=== PATIENT | female | born 1995 | race African-American/Black ===

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

== ENCOUNTER 2017-01-25 11:46 | Emergency (ER) | payer OTHER ==
[~2017-01-25] VITALS: Ht 167.6 cm; Wt 62.0 kg
[~2017-01-25 11:46] MED LIST: NITR100C4 PO
[2017-01-25 11:47] VITALS: BP 122/70; PULSE 67; RESP 14; TEMP 98; O2SAT 98
--- NOTE | 2017-01-25 11:50 | PD ---
Physical Exam Date Seen by Provider: Jan 25, 2017 Time Seen by Provider: 11:49 Narrative 21 year old female presents to the emergency department for evaluation of possible STD. She reports abnormal vaginal discharge for approximately 3 days. VSS. Patient awaiting bed placement. Data Data Last Documented VS Vital Signs Date Time Temp Pulse Resp B/P Pulse Ox O2 Delivery O2 Flow Rate FiO2 01/25/17 11:47 98.0 67 14 122/70 98 MDM Supervised Visit with ONIEL: Christina Bolivar Jan 25, 2017 11:50
--- NOTE | 2017-01-25 12:14 | PD ---
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 Patient has had 3 days of increased vaginal discharge more yellow than normal. No malodorous. No pain. He has had unprotected sex but not with new partner. No history of STD. No urinary symptoms and does not play she could be . PFSH Past Medical History Reproductive: Yes (OVARIAN CYSTS PER PT) ?: Unknown LMP: 01/03/17 Social History Alcohol Use: No Tobacco Use: No Substance Use: No Allergies-Medications (Allergen,Severity, Reaction): Coded Allergies: No Known Allergies (Unverified , 01/25/17) Reported Meds & Prescriptions Reported Meds & Active Scripts Active Fluconazole 150 Mg Tab 150 Mg PO ONCE Nitrofurantoin Monohydrate Macrocrystals (Nitrofurantoin Monoh/Nitrofur Macro) 100 Mg Cap 100 Mg PO BID 7 Days Review of Systems Except as stated in HPI: all other systems reviewed are Neg Physical Exam Narrative GENERAL: Well-appearing female in no acute distress SKIN: Focused skin assessment warm/dry. HEAD: Normocephalic. EYES: No scleral icterus. No injection or drainage. NECK: Supple CARDIOVASCULAR: Regular rate and rhythm. RESPIRATORY: No accessory muscle use. GASTROINTESTINAL: Abdomen soft, non-tender, nondistended. GENITOURINARY: Normal external female genitalia. Speculum examination with physiologic appearing discharge. No cervical motion tenderness, erythema or pain with bimanual exam MUSCULOSKELETAL: Normal gait NEUROLOGICAL: Awake and alert. Normal speech. PSYCHIATRIC: Appropriate mood and affect; insight and judgment normal. Data Data Last Documented VS Vital Signs Date Time Temp Pulse Resp B/P Pulse Ox O2 Delivery O2 Flow Rate FiO2 01/25/17 11:47 98.0 67 14 122/70 98 Orders Gc And Chlamydia Pcr (01/25/17 11:52) Wet Prep Profile (01/25/17 11:52) Urinalysis - C+S If Indicated (01/25/17 11:52) Ed Urine Pregnancytest Poc (01/25/17 11:52) Labs Laboratory Tests Test 01/25/17 12:00 Urine Color YELLOW Urine Turbidity HAZY Urine pH 6.0 Urine Specific [place] 1.022 Urine Protein TRACE mg/dL Urine Glucose (UA) NEG mg/dL Urine Ketones NEG mg/dL Urine Occult Blood TRACE Urine Nitrite NEG Urine Bilirubin NEG Urine Urobilinogen LESS THAN 2.0 MG/DL Urine Leukocyte Esterase LARGE Urine RBC 4 /hpf Urine WBC 8 /hpf Urine Squamous Epithelial 11 /hpf Cells Urine Bacteria OCC /hpf Urine Mucus FEW /lpf Microscopic Urinalysis Comment CULT NOT INDICATED Clue Cells (Wet Prep) NONE SEEN Vaginal Trichomonas (Wet Prep) NONE SEEN Vaginal Yeast (Wet Prep) PRESENT MDM Medical Decision Making Medical Screen Exam Complete: Yes Emergency Medical Condition: Yes Medical Record Reviewed: Yes Differential Diagnosis 21-year-old female with 3 days of vaginal discharge. Differential includes sexual transmitted infection, yeast infection, bacterial vaginosis, vaginitis. Narrative Course Urine test negative. GC and Chlamydia sent but I would not empirically treat her based on her symptoms. Urinalysis and wet prep showed yeast. Urine was leukocyte Estrace white cells and bacteria. Diagnosis Primary Impression: Yeast infection Additional Impressions: Vaginal discharge Urinary tract infection Qualified Code: N30.00 - Acute cystitis without hematuria Referrals: [facility] Dept. call for appointment Patient Instructions: General Instructions, Skin Yeast Infection (GEN) Additional Instructions: Fluconazole as prescribed. Follow-up for full STD testing with [facility] department or primary care provider. Med/Other Pt SpecificInfo: Prescription(s) given Scripts Cephalexin (Keflex)500 Mg [id number] Mg PO Q8H 7 Days Ref 0 Prov:Soha Ceja MD 01/25/17 Fluconazole 150 Mg [id number] Mg PO ONCE #1 TAB Ref 0 Prov:Soha Ceja MD 01/25/17 Disposition: 01 DISCHARGE HOME Condition: Stable Soha Ceja MD Jan 25, 2017 12:14
[2017-01-25 12:55] LABS: BACTERIA, URINE OCC /hpf; BLOOD, URINE TRACE (NEG); COMMENT (UR) CULT NOT INDICATED; CULTURE IF INDICATED CULT NOT INDICATED; GLUCOSE,URINE NEG (NEG); KETONE, URINE NEG (NEG); MUCUS URINE FEW /lpf (OCC); NITRITE,URINE NEG (NEG); SQUAMOUS EPITHELIAL CELL URINE 11 /hpf (0-5); URINE COLOR YELLOW (YELLW/STRAW)
[2017-01-25] MEDS ORDERED: FLUC150T PO (13:09)
[2017-01-25] MEDS ORDERED: CEPH-460 PO (13:35)
[2017-01-25 15:13] LABS: CHLAMYDIA PCR NOT DETECTED (NOT DETECT); NEISSERIA PCR NOT DETECTED (NOT DETECT)
== END 2017-01-25 13:42 | disposition home or self-care (01) ==
LOC: NEPD 11:46
DX: B37.9 Candidiasis, unspecified (principal); N89.8 Other specified noninflammatory disorders of vagina; N39.0 Urinary tract infection, site not specified
CPT/HCPCS: 81001; 84703; 87210; 87491; 87591; 99283

== ENCOUNTER 2017-04-21 18:34 | Emergency (ER) | payer MEDICAID, OTHER ==
[~2017-04-21] VITALS: Ht 167.6 cm; Wt 62.0 kg
[~2017-04-21 18:34] MED LIST changes: +CEPH-460 PO; +FLUC150T PO
[2017-04-21 18:38] VITALS: BP 123/71; PULSE 86; RESP 18; TEMP 98.3; O2SAT 100
--- NOTE | 2017-04-21 18:49 | PD ---
HPI Chief Complaint: Headache Time Seen by Provider: 18:49 Travel History International Travel<30 days: No Contact w/Intl Traveler<30days: No Traveled to known affect area: No History of Present Illness HPI 21-year-old female with no significant medical history presents to emergency department for evaluation of a headache that began approximately one hour ago. No thunderclap onset. Patient cannot pinpoint exactly when it started or specify where it is. She states that she took one ibuprofen and it has not yet resolved so she thought she should come to the emergency department for further evaluation. Patient denies any recent illnesses, fever, or chills. States her menstrual cycle is 7 days late but believes she is not . Denies any urinary symptoms. No chest pain or tightness. No focal deficits or weakness. No nausea or vomiting. No other symptoms to report. PFSH Past Medical History Depression: Yes Diminished Hearing: No Reproductive: Yes (OVARIAN CYSTS PER PT) Immunizations Current: No Tetanus Vaccination: < 5 Years ?: Unknown LMP: 03/10/17 Past Surgical History Other Surgery: Yes (PYLORIC STENOSIS A BABY ) Social History Alcohol Use: No Tobacco Use: No Substance Use: No Allergies-Medications (Allergen,Severity, Reaction): Coded Allergies: No Known Allergies (Unverified , 01/25/17) Reported Meds & Prescriptions Reported Meds & Active Scripts Active Keflex (Cephalexin) 500 Mg Cap 500 Mg PO Q8H 7 Days Fluconazole 150 Mg Tab 150 Mg PO ONCE Nitrofurantoin Monohydrate Macrocrystals (Nitrofurantoin Monoh/Nitrofur Macro) 100 Mg Cap 100 Mg PO BID 7 Days Review of Systems Except as stated in HPI: all other systems reviewed are Neg Physical Exam Narrative GENERAL: Well-nourished female patient, ambulatory and in no acute distress SKIN: Focused skin assessment warm/dry. HEAD: Atraumatic. Normocephalic. EYES: Pupils equal and round. No scleral icterus. No injection or drainage. ENT: No nasal bleeding or discharge. Mucous membranes pink and moist. NECK: Trachea midline. No JVD. CARDIOVASCULAR: Regular rate and rhythm. No murmur appreciated. RESPIRATORY: No accessory muscle use. Clear to auscultation. Breath sounds equal bilaterally. GASTROINTESTINAL: Abdomen soft, non-tender, nondistended. Hepatic and splenic margins not palpable. MUSCULOSKELETAL: No obvious deformities. No clubbing. No cyanosis. No edema. NEUROLOGICAL: Awake and alert. No obvious cranial nerve deficits. Motor grossly within normal limits. Normal speech. Data Data Last Documented VS Vital Signs Date Time Temp Pulse Resp B/P Pulse Ox O2 Delivery O2 Flow Rate FiO2 04/21/17 19:20 77 98 Nasal Cannula 04/21/17 18:38 98.3 18 123/71 Orders Iv Access Insert/Monitor (04/21/17 19:00) Ed Urine Pregnancytest Poc (04/21/17 19:00) Urinalysis - C+S If Indicated (04/21/17 19:00) Sodium Chlor 0.9% 1000 Ml Inj (Ns 1000 M (04/21/17 19:00) Ketorolac Inj (Toradol Inj) (04/21/17 19:00) MDM Medical Decision Making Medical Screen Exam Complete: Yes Emergency Medical Condition: Yes Medical Record Reviewed: Yes Differential Diagnosis Migraine headache with without aura versus electrolyte abnormality brings versus headache, sinus versus cluster versus tension Narrative Course 21 year-old female presents to emergency department for evaluation of a headache with approximately one hour duration. Patient has no focal deficits or weakness. She appears well. Her vital signs are stable. I think a myelogram to order some pain control, I informed the patient wants to leave. Her test is negative. I went back to the room and explained to the patient potential risks of leaving AGAINST MEDICAL ADVICE to include but not limited to paralysis and/or . She verbalizes understanding. She is competent to make decision. She will be leaving AGAINST MEDICAL ADVICE at this time. Diagnosis Primary Impression: Headache Qualified Code: R51 - Nonintractable headache, unspecified chronicity pattern , unspecified headache type Disposition: 07 AGAINST MEDICAL ADVICE Condition: Stable Riddhi Diggs MARGIE Apr 21, 2017 18:49
[2017-04-21] MEDS ORDERED: SODIUM CHLOR 0.9% 1000 ML INJ 1,000 ML IV ONE (19:00)
[2017-04-21] MEDS ORDERED: KETOROLAC TROMETHAMINE 30 MG/ML (IVP) VIAL IV PUSH ONE (19:00)
== END 2017-04-21 19:40 | disposition left against medical advice (07) ==
LOC: NEPC 18:34
DX: R51 Headache (principal)
CPT/HCPCS: 84703; 99281

== ENCOUNTER 2017-08-03 12:39 | Emergency (ER) | payer MEDICAID ==
[~2017-08-03] VITALS: Ht 167.6 cm; Wt 70.0 kg
[2017-08-03 12:40] VITALS: BP 111/65; PULSE 79; RESP 15; TEMP 98.8; O2SAT 99
--- NOTE | 2017-08-03 13:39 | PD ---
HPI Chief Complaint: Complaint Time Seen by Provider: 13:39 Travel History International Travel<30 days: No Contact w/Intl Traveler<30days: No Traveled to known affect area: No History of Present Illness HPI 22-year-old female presents to emergency Department with complaint of her urinary hesitancy, urgency, and urine with strong odor times one week. Denies dysuria or urinary frequency. Denies fever, vomiting, abdominal pain. Denies vaginal discharge, odor. Denies low back pain. Has been trying to stay well hydrated with water for symptom management with no relief. Not taking any medications or tried any other treatments to alleviate her symptoms. Symptoms are mild in severity. No known aggravating or relieving factors. Is on the Depo-Provera shot and her last menses ended June 21. No known allergies. Has no medical complaints. No other modifying factors or associated signs and symptoms. PFSH Past Medical History Depression: Yes Diminished Hearing: No Reproductive: Yes (OVARIAN CYSTS PER PT) Immunizations Current: No Past Surgical History Other Surgery: Yes (PYLORIC STENOSIS A BABY ) Social History Alcohol Use: No Tobacco Use: No Substance Use: No Allergies-Medications (Allergen,Severity, Reaction): Coded Allergies: No Known Allergies (Unverified , 01/25/17) Reported Meds & Prescriptions Reported Meds & Active Scripts Active Pyridium (Phenazopyridine HCl) 100 Mg Tab 100 Mg PO Q8H PRN Keflex (Cephalexin) 500 Mg Cap 500 Mg PO Q12H 7 Days Keflex (Cephalexin) 500 Mg Cap 500 Mg PO Q8H 7 Days Fluconazole 150 Mg Tab 150 Mg PO ONCE Nitrofurantoin Monohydrate Macrocrystals (Nitrofurantoin Monoh/Nitrofur Macro) 100 Mg Cap 100 Mg PO BID 7 Days Review of Systems Except as stated in HPI: all other systems reviewed are Neg Physical Exam Narrative GENERAL: Well-nourished, well-developed black female patient, in no acute distress; afebrile, nontoxic-appearing SKIN: Warm and dry. No rash. HEAD: Atraumatic. Normocephalic. EYES: Pupils equal and round. No scleral icterus. No injection or drainage. ENT: Mucosa pink and moist. NECK: Trachea midline. CARDIOVASCULAR: Regular rate. RESPIRATORY: No accessory muscle use. GASTROINTESTINAL: Abdomen soft, non-tender, nondistended. Hepatic and splenic margins not palpable. Bowel sounds are active 4 quadrants. Bladder nontender and nondistended. MUSCULOSKELETAL: No obvious deformities. No clubbing. No cyanosis. No edema. BACK: No CVA tenderness NEUROLOGICAL: Awake and alert. Oriented 3. No obvious cranial nerve deficits. Motor grossly within normal limits. Normal speech. Moves all extremities. 5/5 strength to all extremities. PSYCHIATRIC: Appropriate mood and affect; insight and judgment normal. Data Data Last Documented VS Vital Signs Date Time Temp Pulse Resp B/P (MAP) Pulse Ox O2 Delivery O2 Flow Rate FiO2 08/03/17 12:40 98.8 79 15 111/65 (80) 99 Orders Orders Urinalysis - C+S If Indicated (08/03/17 13:02) Ed Urine Pregnancytest Poc (08/03/17 13:02) Urine Culture (08/03/17 14:00) Ed Discharge Order (08/03/17 14:45) Labs Laboratory Tests Test 08/03/17 14:00 Urine Color YELLOW Urine Turbidity CLEAR Urine pH 6.5 Urine Specific [place] 1.026 Urine Protein NEG mg/dL Urine Glucose (UA) NEG mg/dL Urine Ketones NEG mg/dL Urine Occult Blood NEG Urine Nitrite NEG Urine Bilirubin NEG Urine Urobilinogen LESS THAN 2.0 MG/DL Urine Leukocyte Esterase MOD Urine RBC 2 /hpf Urine WBC 10 /hpf Urine Squamous Epithelial Cells 1 /hpf Urine Bacteria OCC /hpf Urine Mucus FEW /lpf Microscopic Urinalysis Comment CULTURE INDICATED MDM Medical Decision Making Medical Screen Exam Complete: Yes Emergency Medical Condition: Yes Medical Record Reviewed: Yes Differential Diagnosis Cystitis, UTI, pyelonephritis Narrative Course 22-year-old female with urinary symptoms. Denies vaginal symptoms. Patient is afebrile and nontoxic-appearing. Denies fever, vomiting. UPT negative. Urinalysis ordered. 1445: Urinalysis was signs of infection. Keflex, Pyridium prescribed for home. Instructed patient to follow up with primary care provider. Patient verbalizes understanding and agreement with treatment plan. Patient is medically cleared and stable for discharge. Discussed reasons to return to the emergency department. Patient agrees with treatment plan. The patients vital signs are stable and the patient is stable for outpatient follow-up and treatment. Patient discharged home, stable and in no acute distress. Diagnosis Primary Impression: UTI (urinary tract infection) Qualified Codes: N39.0 - Urinary tract infection, site not specified Referrals: Primary Care Physician Patient Instructions: General Instructions, Urinary Tract Infection in Women ( ED) Additional Instructions: Take antibiotics as prescribed and complete full course Take Pyridium for bladder spasms: Pyridium will turn your urine bright orange Drink plenty of fluids Maintain good personal hygiene Follow-up with primary care provider Return to the emergency department immediately with worsening of symptoms Med/Other Pt SpecificInfo: Prescription(s) given Scripts Phenazopyridine (Pyridium) 100 Mg Tab 100 MG PO Q8H Y for DYSURIA, #10 TAB 0 Refills Prov: Lucy Almendarez 08/03/17 Cephalexin (Keflex) 500 Mg Cap 500 MG PO Q12H for Infection for 7 Days, #14 CAP 0 Refills Prov: Lucy Almendarez 08/03/17 Disposition: 01 DISCHARGE HOME Condition: Stable Lucy Almendarez Aug 03, 2017 13:39
[2017-08-03 14:24] LABS: BACTERIA, URINE OCC /hpf; BLOOD, URINE NEG (NEG); COMMENT (UR) CULTURE INDICATED; CULTURE IF INDICATED CULTURE INDICATED; GLUCOSE,URINE NEG (NEG); KETONE, URINE NEG (NEG); MUCUS URINE FEW /lpf (OCC); NITRITE,URINE NEG (NEG); PH, URINE 6.5 (5.0-8.5); SQUAMOUS EPITHELIAL CELL URINE 1 /hpf (0-5); URINE COLOR YELLOW (YELLW/STRAW)
[2017-08-03] MEDS ORDERED: PHEN0.4T PO (14:45)
[2017-08-03] MEDS ORDERED: CEPH-460 PO (14:45)
== END 2017-08-03 15:17 | disposition home or self-care (01) ==
LOC: NEPK 12:39
DX: N39.0 Urinary tract infection, site not specified (principal); F32.9 Major depressive disorder, single episode, unspecified
CPT/HCPCS: 81001; 84703; 87077; 87086; 87186; 99284